=== PATIENT | male | born 1975 | race African-American/Black ===

== ENCOUNTER 2017-04-13 14:54 | Inpatient (IN) | payer BC ==
[~2017-04-13] VITALS: Ht 167.6 cm; Wt 80.4 kg
[~2017-04-13 14:54] MED LIST: ACETAMINOPHEN 325 MG TAB PO PRN; ACETAMINOPHEN/HYDROcodone 325 MG/5 MG TAB PO PRN; BACT800T5 PO; BISACODYL 10 MG SUPP RECTAL PRN; LACTULOSE SYRUP 20 GM/30 ML CUP PO PRN; MAGNESIUM HYDROXIDE SUSP 30 ML CUP PO PRN; NALOXONE HCL 0.4 MG/ML AMP IV PUSH PRN; SENNOSIDES 8.6 MG TAB PO PRN; SODIUM CHLORIDE 0.9% FLUSH 10 ML FLUSH IV FLUSH PRN; ULTR50TA5 PO; VANCOMYCIN INJ 1,000 MG in SODIUM CHLOR 0.9% 250 ML INJ 250 ML IV SCH
[2017-04-13] MEDS ORDERED: ENOXAPARIN SODIUM 40 MG/0.4 ML SYRINGE SQ SCH (16:00)
[2017-04-13] MEDS ORDERED: Vancomycin Consult Pharmacy 1 EA OTHER SCH (16:00)
[2017-04-13 16:02] VITALS: BP 105/67; PULSE 82; RESP 22; TEMP 98.2; O2SAT 97
--- NOTE | 2017-04-13 16:50 | HHI.HP ---
[facility] Non-Staff Admission Diagnosis Diagnoses: (1) Wound, open, toe Diagnosis: Principal (2) Hyperglycemia Diagnosis: Principal Chief Complaint: Nonhealing wound Travel History International Travel<30 Days: No Contact w/Intl Traveler <30 Da: No History of Present Illness Written by Mata Carroll, acting as scribe for Dr. Curtis on 04/13/17 at 16: 47. 41-year-old male with no chronic medical illnesses to report presented to the emergency department because of left foot toe wound worsening. Patient was evaluated on 04/09/17 for a wound on his left foot third digit. Patient was started on Bactrim and Ultram and was discharged home. Patient states that it did not improve so he came back to emergency department for evaluation. Culture did show MRSA in which he was on Bactrim that was sensitive. Patient denies any fever, chills, chest pain, nausea, vomiting, abdominal pain. 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 Patient does drink alcohol on daily basis as well as a 2 pack-a-day smoker. He has had episodes of hyperglycemia, with family history. Patient will need further evaluation since wound is not healing could be from underlying diabetes, peripheral vascular disease. Patient has had a weight loss of 30 pounds recently. He denies any palpitations, dieting, increase in activity. Patient was recommended hospitalization by ER physician. Review of Systems Except as stated in HPI: all other systems reviewed are Neg Past Family Social History Past Medical History No chronic medical illnesses Past Surgical History No previous surgeries Reported Medications Reported Meds & Active Scripts Active Ultram (Tramadol HCl) 50 Mg Tab 50 Mg PO Q6H PRN Bactrim DS (Sulfamethoxazole-Trimethoprim) 800-160 Mg Tab 1 Tab PO BID Allergies: Coded Allergies: No Known Allergies (Unverified , 04/13/17) Family History Reviewed is significant for grandparents with diabetes, mother with throat cancer Social History Patient drinks 4-5 beers daily, he does smoke 2 pack a cigarettes a day since he was 14 years old. Physical Exam Vital Signs Vital Signs Date Time Temp Pulse Resp B/P (MAP) Pulse Ox O2 Delivery O2 Flow Rate FiO2 04/13/17 16:02 98.2 82 22 105/67 (80) 97 Physical Exam GENERAL: Well-developed, well-nourished, in no acute distress. alert and orientated HEENT: Head is normocephalic without any lesions or masses noted. Facial features are symmetric. Eyes: Pupils equal round reactive to light. Extraocular muscles are intact. Conjunctivae were clear. Oropharyngeal: Pharynx without any erythema edema. Tongue is midline without deviation. Buccal mucosa is moist without any masses or lesions NECK: Supple without any masses. Trachea midline no deviation. No JVD, no bruits are appreciated CARDIAC: Regular rhythm, regular rate. S1/S2 are heard. No murmurs gallops or rubs. LUNGS: Clear to auscultation bilaterally. No wheeze, rhonchi or rales. No use of accessory muscles on inspiration or expiration. ABDOMEN: Soft, nontender. Nondistended. Bowel sounds heard in all 4 quadrants. No organomegaly or masses. Negative rebound, negative guarding EXTREMITIES: No edema, pulses are equal bilaterally. No cyanosis or clubbing NEUROLOGY: Mood and affect appear appropriate. Cranial nerves II through XII grossly intact. Muscle strength 5/5 in upper and lower extremities bilaterally. Deep tendon reflexes are 2+ in upper and lower extremities bilaterally. LEFT FOOT: Patient has obvious collapse of arch, patient has very thin skin of the feet. Pulses are intact however little diminished. On the third toe over the proximal interphalangeal joint patient does have 1.5 cm ulceration. Does not appear to have any exudates. Does have clean edges. Caprini VTE Risk Assessment Caprini VTE Risk Assessment: No/Low Risk (score <= 1) Caprini Risk Assessment Model Point Value = 1 Point Value = 2 Point Value = 3 Point Value = 5 Age 41-60 Minor surgery BMI > 25 kg/m2 Swollen legs Varicose veins or History of unexplained or recurrent spontaneous Oral contraceptives or hormone replacement Sepsis (< 1 month) Serious lung disease, including pneumonia (< 1 month) Abnormal pulmonary function Acute myocardial infarction Congestive heart failure (< 1 month) History of inflammatory bowel disease Medical patient at bed rest Age 61-74 Arthroscopic surgery Major open surgery (> 45 min) Laparoscopic surgery (> 45 min) Malignancy Confined to bed (> 72 hours) Immobilizing plaster cast Central venous access Age >= 75 History of VTE Family history of VTE Factor V Leiden Prothrombin [id number] Lupus anticoagulant Anticardiolipin antibodies Elevated serum homocysteine Heparin-induced thrombocytopenia Other congenital or acquired thrombophilia Stroke (< 1 month) Elective arthroplasty Hip, pelvis, or leg fracture Acute spinal cord injury (< 1 month) Prophylaxis Regimen Total Risk Factor Score Risk Level Prophylaxis Regimen 0-1 Low Early ambulation 2 Moderate Order ONE of the following: *Sequential Compression Device (SCD) *Heparin 5000 units SQ BID 3-4 Higher Order ONE of the following medications: *Heparin 5000 units SQ TID *Enoxaparin/Lovenox 40 mg SQ daily (WT < 150 kg, CrCl > 30 mL/min) *Enoxaparin/Lovenox 30 mg SQ daily (WT < 150 kg, CrCl > 10-29 mL/min) *Enoxaparin/Lovenox 30 mg SQ BID (WT < 150 kg, CrCl > 30 mL/min) AND/OR *Sequential Compression Device (SCD) 5 or more Highest Order ONE of the following medications: *Heparin 5000 units SQ TID (Preferred with Epidurals) *Enoxaparin/Lovenox 40 mg SQ daily (WT < 150 kg, CrCl > 30 mL/min) *Enoxaparin/Lovenox 30 mg SQ daily (WT < 150 kg, CrCl > 10-29 mL/min) *Enoxaparin/Lovenox 30 mg SQ BID (WT < 150 kg, CrCl > 30 mL/min) AND *Sequential Compression Device (SCD) Assessment and Plan Assessment and Plan Left foot third digit wound Patient did have treatment outpatient setting with Bactrim for 4 days prior to returning to emergency department. Patient states that he did not improve so he returned for evaluation Patient does have some mild elevated glucose, will need to evaluate for possible underlying diabetes, possible peripheral vascular disease creating decreased healing Check hemoglobin A1c, check MAHOGANY Consult wound care nurse for recommendations, consult podiatry for evaluation Previous wound culture does show MRSA We'll start patient on vancomycin IV for continued management while hospitalized Chronic alcohol use Monitor for withdrawal Chronic tobacco use Counseled on cessation DVT prevention Low risk, early ambulation This note was transcribed by JUNG Frederick. I, Dr. Nusrat Curtis personally performed the history, physical exam, and medical decision making; and confirmed the accuracy of the information in the transcribed note. Authenticated by Dr. Nusrat Curtis on 04/13/17 at 16:47. Physician Certification 2 Midnight Certification Type: Admission for Inpatient Services Order for Inpatient Services The services are ordered in accordance with Medicare regulations or non- Medicare payer requirements, as applicable. In the case of services not specified as inpatient-only, they are appropriately provided as inpatient services in accordance with the 2-midnight benchmark. Estimated LOS (days): 2 days is the estimated time the patient will need to remain in the hospital, assuming treatment plan goals are met and no additional complications. Post-Hospital Plan: Not yet determined Mata Carroll Apr 13, 2017 16:50 Nusrat Curtis MD Apr 13, 2017 18:16
[2017-04-13] MEDS: VANCOMYCIN INJ 1,600 MG in SODIUM CHLORID 0.9% 500 ML INJ 500 ML IV SCH (17:26)
[2017-04-13 19:48] VITALS: BP 116/80; PULSE 68; RESP 20; TEMP 98; O2SAT 96
[2017-04-13] MEDS: DOCUSATE SODIUM 50 MG/SENNA 8.6 MG TAB PO SCH (21:00)
[2017-04-13] MEDS: SODIUM CHLORIDE 0.9% FLUSH 10 ML FLUSH IV FLUSH SCH (21:00)
--- NOTE | 2017-04-14 02:21 | RADRPT ---
EXAM DATE/TIME: 04/13/2017 00:00 [facility] COMPARISON: No previous studies available for comparison. INDICATIONS : Left Foot Cellulitis/Wound TECHNIQUE: Four-cuff ankle and brachial pressures were obtained. Pulse cuff waveform tracings of the ankles were recorded, and ankle-brachial indices were calculated. PRESSURES (mmHg): Brachial (arm): Right IV Site Left 116 Ankle: Right 126 Left 122 MAHOGANY: Right 1.09 Left 1.05 CONCLUSION: Unremarkable ankle brachial indices. Dk Lopez MD on April 14, 2017 at 2:18 Board Certified Radiologist. This report was verified electronically.
[2017-04-14 07:52] LABS: AUTOMATED NEUTROPHIL # 2.2 TH/MM3 (1.8-7.7); BASOPHIL # 0.1 TH/MM3 (0-0.2); BASOPHIL % 1.3 % (0.0-2.0); EOSINOPHIL # 0.2 TH/MM3 (0-0.4); HEMATOCRIT 47.1 % (39.0-51.0); HEMO FLAGS DIFF FINAL; LYMPH % 38.3 % (9.0-44.0); LYMPHOCYTE # 2.1 TH/MM3 (1.0-4.8); MEAN CELL VOLUME 94.5 FL (80.0-100.0); MEAN CORPUSCULAR HGB CONC 33.9 % (32.0-36.0); NEUT % 41.4 % (16.0-70.0); PLATELET COUNT 245 TH/MM3 (150-450); RED BLOOD COUNT 4.98 MIL/MM3 (4.50-5.90); RED CELL DISTRIBUTION WIDTH 12.9 % (11.6-17.2); WHITE BLOOD COUNT 5.4 TH/MM3 (4.0-11.0)
[2017-04-14 08:00] VITALS: BP 106/71; PULSE 80; RESP 20; TEMP 98.1; O2SAT 97
--- NOTE | 2017-04-14 09:16 | HHI.PR ---
Subjective Remarks Feels better. No fever overnight. says he has some pain at the wound side. Able to ambulate. No n/v/d/c. Objective Vitals Vital Signs Date Time Temp Pulse Resp B/P (MAP) Pulse Ox O2 Delivery O2 Flow Rate FiO2 04/14/17 08:00 98.1 80 20 106/71 (83) 97 04/13/17 19:48 98.0 68 20 116/80 (92) 96 04/13/17 16:02 98.2 82 22 105/67 (80) 97 I/O 04/13/17 04/13/17 04/13/17 04/14/17 04/14/17 04/14/17 07:00 15:00 23:00 07:00 15:00 23:00 Intake Total 480 ml Balance 480 ml Intake Oral 480 ml # Voids 2 Result Diagram: 04/14/1763204/14/17 06 Objective Remarks GENERAL: Pleasant 41 yo male, well-developed, well-nourished, in no acute distress. alert and orientated CARDIAC: Regular rhythm, regular rate. S1/S2 are heard. No murmurs gallops or rubs. LUNGS: Clear to auscultation bilaterally. No wheeze, rhonchi or rales. No use of accessory muscles on inspiration or expiration. ABDOMEN: Soft, nontender. Nondistended. Bowel sounds heard in all 4 quadrants. No organomegaly or masses. Negative rebound, negative guarding EXTREMITIES: No edema, pulses are equal bilaterally. No cyanosis or clubbing NEUROLOGY: Mood and affect appear appropriate. Cranial nerves II through XII grossly intact. Muscle strength 5/5 in upper and lower extremities bilaterally. Deep tendon reflexes are 2+ in upper and lower extremities bilaterally. LEFT FOOT: Patient has obvious collapse of arch, patient has very thin skin of the feet. Pulses are intact however little diminished. On the third toe over the proximal interphalangeal joint patient does have 1.5 cm ulceration. Does not appear to have any exudates. Does have clean edges. A/P Problem List: (1) Wound, open, toe ICD Code: S91.109A - Unspecified open wound of unspecified toe(s) without damage to nail, initial encounter (2) Hyperglycemia ICD Code: R73.9 - Hyperglycemia, unspecified Assessment and Plan Left foot third digit wound Patient did have treatment outpatient setting with Bactrim for 4 days prior to returning to emergency department. Patient states that he did not improve so he returned for evaluation Patient does have some mild elevated glucose, will need to evaluate for possible underlying diabetes, possible peripheral vascular disease creating decreased healing Check hemoglobin A1c, check MAHOGANY Consult wound care nurse for recommendations, consult podiatry for evaluation Previous wound culture does show MRSA Continue vancomycin IV for continued management while hospitalized Chronic alcohol use - Monitor for withdrawal Chronic tobacco use-Counseled on cessation DVT prevention Low risk, early ambulation Nusrat Curtis MD Apr 14, 2017 09:16
[2017-04-14] MEDS: DOCUSATE SODIUM 50 MG/SENNA 8.6 MG TAB PO SCH (09:28)
[2017-04-14] MEDS: SODIUM CHLORIDE 0.9% FLUSH 10 ML FLUSH IV FLUSH SCH (09:31)
[2017-04-14 09:52] LABS: FREE T3 3.05 PG/ML (2.18-3.98); FREE T4 0.93 NG/DL (0.76-1.46)
[2017-04-14] MEDS ORDERED: INFLUENZA VIRUS VACCINE (QUADRIVALENT) 0.5 ML SYR IM ONE (10:00)
[2017-04-14] MEDS ORDERED: PNEUMOCOCCAL POLYVALENT INJ 25 MCG/0.5 ML SYR IM ONE (10:00)
[2017-04-14] MEDS: VANCOMYCIN INJ 1,600 MG in SODIUM CHLORID 0.9% 500 ML INJ 500 ML IV SCH (11:07)
[2017-04-14 11:21] LABS: HEMOGLOBIN A1a 1.1 %; HEMOGLOBIN A1b 1.6 %; HEMOGLOBIN Ao 84.1 %; HEMOGLOBIN F 0.3 %; HEMOGLOBIN LA1C 2.1 %; HEMOGLOBIN P3 3.9 %
--- NOTE | 2017-04-14 11:42 | HHI.DCPOC ---
Discharge Care Plan Goals to Promote Your Health * To prevent worsening of your condition and complications * To maintain your health at the optimal level Directions to Meet Your Goals Take your medications as prescribed Follow your dietary instruction Follow activity as directed Keep your appointments as scheduled Take your immunizations and boosters as scheduled If your symptoms worsen call your PCP, if no PCP go to Urgent Care Center or Emergency Room Smoking is Dangerous to Your Health. Avoid second hand smoke Call the 24-hour hour crisis hotline for domestic abuse at Nusrat Curtis MD Apr 14, 2017 11:42
[2017-04-14] MEDS ORDERED: COLL30T TOPICAL (11:47)
[2017-04-14] MEDS ORDERED: COLLAGENASE OINT 30 GM TUBE TOPICAL SCH (13:15)
[2017-04-14 13:48] VITALS: BP 109/64; PULSE 73; RESP 16; TEMP 98.4; O2SAT 95
--- NOTE | 2017-04-14 16:07 | MB ---
cc: ТАТЬЯНА PEDRAZA DPM DATE OF CONSULTATION: 04/14/2017. REASON FOR CONSULTATION: Left third digit wound. HISTORY OF PRESENT ILLNESS: The patient is a 41-year-old female with no chronic illnesses who presented to the emergency department in [place] for a wound on 04/09/2017. The patient was started on Bactrim and Ultram. Wound cultures showed MRSA. Denies nausea or vomiting, fever, diarrhea or chills. The patient denies any nausea, vomiting, fever, diarrhea, chills. He does have a history of 30 pound weight loss over a 3-month period of time. PAST MEDICAL HISTORY: Denies. PAST SURGICAL HISTORY Denies. MEDICATIONS: 1. Bactrim. 2. Ultram. SOCIAL HISTORY: The patient drinks four to five beers daily and does smoke two packs a day and cigarettes since he was 14 years old. PHYSICAL EXAMINATION: DP and PT diminished. Left third digit dorsal ulceration approximately 1 x 1 and 100% granulated. There is no exposed tendon or bone. Muscle strength intact. Range of motion intact. Blood flow studies without inflow disease. LABS: WBC 04/14/2017 5.4, RBC of 4.98, hemoglobin and hematocrit 15.9 and 47.1. ASSESSMENT AND PLAN: Left third digit ulcer. 1. Recommend continued Bactrim offloading and postop shoe and Santyl wound care daily. 2. The patient can follow up with an outpatient physician for evaluating DM and wound care. We will continue to follow the patient as an outpatient. Татьяна Pedraza DPM /[place] /3:38 PM /3:58 PM
[2017-04-15] MEDS ORDERED: VANCOMYCIN TROUGH ONE (22:45)
== END 2017-04-14 14:31 | disposition home or self-care (01) | DRG 605 ==
LOC: PHEDDLT 14:54 → UNDOADMIN 14:55 → PH5A 14:55 → PHEDA 14:55
PROVIDERS: ADMIT Hospitalist; ATTEND Hospitalist
DX: S91.105A Unspecified open wound of left lesser toe(s) without damage to nail, initial encounter (principal); F17.210 Nicotine dependence, cigarettes, uncomplicated; R73.9 Hyperglycemia, unspecified; Z23 Encounter for immunization
CPT/HCPCS: 80048; 80053; 83036; 84439; 84443; 84481; 85025; 86403; 87070; 87186; 87205; 90471; 90472; 90686; 90732; 93922; 96365; G0008; G0009; J2543; J3370; J7040; Q2038